=== PATIENT | female | born 1950 | race Caucasian/White ===

== ENCOUNTER 2017-02-17 08:51 | Emergency (ER) | payer OTHER ==
[~2017-02-17] VITALS: Ht 172.7 cm; Wt 97.7 kg
[~2017-02-17 08:51] MED LIST: CYAN1TAB42 PO; FERR159T2 PO
[2017-02-17 08:53] VITALS: BP 125/81; PULSE 84; RESP 22; O2SAT 98
--- NOTE | 2017-02-17 09:00 | ED.REPORT ---
HPI-General Illness Date of Service Feb 17, 2017 ED Provider: Jefferson Kraus MD Patient is an otherwise healthy 66 year old female who presents to the ED complaining of non-radiating aching pain to the distal part of the top of the right foot onset 18:15 yesterday. She denies nausea, vision change, headache, SOB, lightheadedness, head injury and any other symptoms. Patient reports tripping on a block at work and rolling her ankle. Patient states she had "trouble standing and could barely drive home from work last night". Patient reports taking ibuprofen with relief. She states her pain is a 5/10 in severity , which is exacerbated with walking. Pt did not have any symptoms prior to fall , not lightheaded - just 'tripped'. No other complaints at this time. Nursing Notes Stated Complaint: FOOT INJURY/ L AND I Chief Complaint: Extremity Trauma Nursing Notes Reviewed: Yes Allergies: Coded Allergies: No Known Drug Allergies (Verified Allergy, Unknown, 05/17/14) Sulfa (Sulfonamide Antibiotics) (Verified Allergy, Unknown, 02/17/17) Scheduled PRN Hydrocodone-Acetaminophen 5-325 mg (Hydrocodone-Acetaminophen 5-325 mg) 1 Each Tablet 1 TABLET PO Q4H PRN PRN For Pain Miscellaneous Medications Cyanocobalamin/Folic Acid (Vitamin L60-Cmplx Acid Tablet) 1 Each Tablet 1 EACH PO Ferrous Sulfate, Dried (Iron) 159 Mg Tablet.er 159 MG PO General Time Seen by MD: 09:00 Chief Complaint Other (Right foot injury) Hx Obtained From: Patient Arrived By: Walk-in Sudden in Onset?: No Onset Occurred: Yesterday Symptom Duration: Since onset Caused by: Accidental Location: : Foot right Quality: Aching Radiation: : Does not radiate Severity: Current: No pain currently Severity: Maximum: Pain level 5 out of 10 Recent Healthcare: No recent doctor visit, No recent hospitalization Similar Sx Previous: No Past Medical History Past Medical History None reported Past Surgical History Reports: Appendectomy Family History Denies Hx of bruising or anesthesia Denies: Bleeding disorder Smoking History Never Smoker Social History Alcohol Use: "Social" Other Social History: Good social support Ambulatory Status Independent Review of Systems Denies head injury Full Review of Systems Respiratory: Denies: Shortness of breath Cardiovascular: Denies: Chest pain GI: Denies: Nausea Musculoskeletal: Reports: Extremity pain (Right foot ) Neurologic: Denies: Headache, Lightheaded, Vision change Complete sys rev & neg: except as marked. Physical Exam Nursing note and vitals reviewed. Constitutional: Well-developed, well-nourished. Not diaphoretic. Head: Normocephalic and atraumatic. Mouth/Throat: Oropharynx is clear and moist. No oropharyngeal exudate. Eyes: EOM are normal. Pupils are equal, round, and reactive to light. Neck: Supple, no tracheal deviation. Cardiovascular: Normal rate, regular rhythm. Equal and intact distal pulses throughout. Pulmonary/Chest: Effort normal and breath sounds normal. No respiratory distress. Abdominal: Soft. No distension. There is no tenderness, rebound, or guarding. Bowel sounds present. Musculoskeletal: Range of motion grossly intact, moving all extremities. Tender across the dorsum of the distal right foot. No ankle TTP. No proximal first metatarsal TTP, nor fifth metatarsal TTP. Minimal swelling. No erythema or ecchymosis. Neurological: AOx3. Grossly nonfocal exam. Strength and sensation intact and equal to bilateral upper and lower extremities. Normal finger to nose testing. No pronator drift. Negative Romberg, unremarkable gait. Skin: Warm and dry, no rashes or pallor appreciated. Psychiatric: Appropriate mood and affect. Behavior appears normal. Vital Signs Vital Signs Date Time Temp Pulse Resp B/P Pulse Ox O2 Delivery O2 Flow Rate FiO2 02/17/17 11:09 69 20 145/90 99 Room Air 02/17/17 08:53 36.3 84 22 125/81 98 Room Air Initial VS: Reviewed Interpretation & Diagnostics X-Ray Interpretation Xray Interpretation: IMPRESSION: Partially visualized nondisplaced second and third metatarsal fractures. Please see x-ray foot report of 02/17/17 for further details. Dictated by: Shavonne Melo M.D. on 02/17/2017 at 8:53 Study Performed: Three views X-Ray Ordered: Ankle right Interpretation / Wet Read by: Interpret - Radiologist Xray Interpretation: IMPRESSION: Nondisplaced second and third metatarsal base fractures. Dictated by: Shavonne Melo M.D. on 02/17/2017 at 8:53 Re-Eval/Medical Decision Med Decision/Clinical Course In summary, 66-year-old female presenting to the ED for evaluation of distal right foot pain. She fell last night, however no symptoms before and, including no chest pain, lightheadedness, shortness of breath, etc.; patient states this is a clear mechanical fall. No other injuries. Did not lose consciousness or hit her head. No neck pain or back pain. Patient does have tenderness to the distal part of the right foot on the dorsum, however does not have proximal first metatarsal tenderness, nor fifth metatarsal tenderness. Neurovascularly intact. She is having difficulty bearing weight. X-rays demonstrate nondisplaced second and third metatarsal fractures. Briefly discussed the patient with orthopedics as per below; appreciate recommendations. Plan to place the patient in a boot, make her nonweightbearing , and follow up with orthopedics this week. Careful return precautions were discussed with the patient at length. Patient agreeable to the plan as stated, no further questions. Source of Hx: Old records Time of Eval: 10:14 Re-Evaluation/Progress Note: Pt rechecked. Informed pt of plan for discharge. Pt understands and agrees with plan for discharge. F/U instructions and RTER warnings given. All questions addressed. Consultation : Referral / Consult Name: Terrence Ramos MD Consulted With: Orthopedic Call Returned at: 10:07 Refuse Laborer: Agrees with eval, Agrees with plan Note: Discussed pt's case. He recommends non-weight bearing, boot, and F/U in clinic. Counseled Regarding: Diagnosis, Need for follow-up, When/why to return to ED Discharge & Departure Departure Notes Non displaced fractures of the 2nd and 3rd metatarsal Primary Impression: Fracture of 2nd metatarsal Encounter type: initial encounter Fracture type: closed Fracture alignment : nondisplaced Laterality: right Qualified Code: S92.324A - Nondisplaced fracture of second metatarsal bone, right foot, initial encounter for closed fracture Additional Impression: Fracture of 3rd metatarsal Encounter type: initial encounter Fracture type: closed Fracture alignment : nondisplaced Laterality: right Qualified Code: S92.334A - Nondisplaced fracture of third metatarsal bone, right foot, initial encounter for closed fracture Disposition: Home Discharge Condition All VS Reviewed: Yes Condition: Stable Patient Instructions: Crutch Instructions (DC), Hydrocodone/Acetaminophen (By mouth) Additional Instructions: You have been seen in the emergency department for evaluation of pain to your foot. Unfortunately, it appears that there are fractures to two of the bones in your foot. Please wear the boot at all times and do not put any weight on your right foot until you follow up with the orthopedic surgeon. Call Dr. Terrence Ramos, referral orthopedic, tomorrow for a follow up appointment next week. Return to the emergency department immediately if you develop any worsening pain, numbness or tingling to the foot, pain radiating up into your ankle or knee, or if there is anything else of concern to you. Thank you for allowing us to be a part of your care today. You can use Tylenol for pain, however did not take Tylenol in conjunction with the medication that I prescribed today. Do not drive with the medication I prescribed. Referrals: Mary Champagne PA-C (PCP) [facility] (Family) Terrence Ramos MD Attestation Portions of this note were transcribed by Keerthi Das and Therese Acevedo. I, Dr. Kraus personally performed the history, physical exam and medical decsion- making; I reviewed and confirmed the accuracy of the information in the transcribed note. Signed by: Uvaldo Gamez, 02/17/17 copies to: [facility]; Mary Champagne PA-C; Terrence Ramos MD, William B MD Feb 17, 2017 09:00 Keerthi Das Feb 17, 2017 09:31 Therese Park Feb 17, 2017 10:18
--- NOTE | 2017-02-17 09:55 | DRSVH ---
PROCEDURE: X-RAY RIGHT FOOT COMPLETE, MINIMUM THREE VIEWS ([id number]) INDICATIONS: pain TECHNIQUE: 3 views of the foot were acquired. COMPARISON: None. FINDINGS: Bones: Nondisplaced fractures are noted at the base of the second and third metatarsals. Soft tissues: No tibiotalar joint effusion. Achilles tendon appears normal. IMPRESSION: Nondisplaced second and third metatarsal base fractures. Dictated by: Shavonne Melo M.D. on 02/17/2017 at 8:53 Approved by: Shavonne Melo M.D. on 02/17/2017 at 8:53
--- NOTE | 2017-02-17 09:56 | DRSVH ---
PROCEDURE: X-RAY RIGHT ANKLE, MINIMUM THREE VIEWS ([id number]) INDICATIONS: pain TECHNIQUE: 3 views of the ankle were acquired. COMPARISON: [facility], CR, XR FOOT 3VW RT, 02/17/2017, 9:01. FINDINGS: Bones: Partially visualized nondisplaced fractures at the base of the second and third metatarsals. Soft tissues: No tibiotalar joint effusion. Achilles tendon appears normal. IMPRESSION: Partially visualized nondisplaced second and third metatarsal fractures. Please see x-ray foot report of 02/17/17 for further details. Dictated by: Shavonne Melo M.D. on 02/17/2017 at 8:53 Approved by: Shavonne Melo M.D. on 02/17/2017 at 8:55
[2017-02-17] MEDS ORDERED: HYDR-4003 PO (10:19)
[2017-02-17 11:09] VITALS: BP 145/90; PULSE 69; RESP 20; O2SAT 99
== END 2017-02-17 11:09 | disposition home or self-care (01) ==
LOC: SED 08:51
DX: S92.324A Nondisplaced fracture of second metatarsal bone, right foot, initial encounter for closed fracture (principal); S92.334A Nondisplaced fracture of third metatarsal bone, right foot, initial encounter for closed fracture; W01.0XXA Fall on same level from slipping, tripping and stumbling without subsequent striking against object, initial encounter; Y93.89 Activity, other specified; Y92.69 Other specified industrial and construction area as the place of occurrence of the external cause; Y99.0 Civilian activity done for income or pay; Z88.2 Allergy status to sulfonamides